=== PATIENT | female | born 1975 | race Caucasian/White ===

== ENCOUNTER 2017-09-29 20:35 | Emergency (ER) | payer OTHER ==
[~2017-09-29 20:35] MED LIST: CYCLOBENZAPRINE10 M2 PO; DIAZEPAM5 MG; DILAUDID2 MG PO; ESTRACE0.1 MG/GM TOP; FENTANYL50 MCG/HR; HYDROMORPHONE HY4 MG PO; IBUPROFEN800 MG; LEVOTHYROXIN0.137 MG PO; ONDANSETRON4 M1 PO; PERCOCET 325 MG1 TA2 PO; PREDNISONE20 M1 PO; PRINIVIL 5MG5 MG PO; PROAIR HFA8.5 GM INH; SENNA PLUS 50 M1 TAB PO; SUMATRIPTAN SUC25 MG PO; VIVELLE-DO0.1 MG/24 TOP
[2017-09-29 21:18] LABS: ABSOLUTE BASOPHIL COUNT 0.1 /CUMM (0.0-0.2); ABSOLUTE EOSINOPHIL COUNT 0.3 /CUMM (0.0-0.7); ABSOLUTE GRANULOCYTE CT 3.7 /CUMM (1.4-6.5); ABSOLUTE LYMPH COUNT 3.5 /CUMM (1.2-3.4); ABSOLUTE MONOCYTE COUNT 0.5 /CUMM (0.10-0.60); BASOPHIL % 1.8 % (0.0-2.0); EOSINOPHIL % 3.8 % (0-5); GRANULOCYTE % 45.1 % (42.2-75.2); HEMATOCRIT 45.4 % (37-47); MEAN CORPUSCULAR HGB 28.8 PG (27.0-31.0); MEAN CORPUSCULAR HGB CONC 35.1 G/DL (33.0-37.0); MEAN PLATELET VOLUME 7.6 FL (7.4-10.4); PLATELET COUNT 338 /CUMM (130-400); RBC DISTRIBUTION WIDTH 13.9 % (11.5-14.5); RED BLOOD CELL CT 5.53 /CUMM (4.20-5.40); WHITE BLOOD CELL COUNT 8.2 /CUMM (4.8-10.8)
--- NOTE | 2017-09-29 21:27 | RADIOLOGY REPORT ---
EXAMINATION: XR CHEST CLINICAL INFORMATION: Chest pain. COMPARISON: Chest x-ray dated 08/31/2015. TECHNIQUE: 2 views of the chest were obtained. FINDINGS: No airspace opacities or pleural effusions are seen. The cardiomediastinal silhouette is normal. No acute osseous abnormality is seen. IMPRESSION: Clear lungs. No acute process.
--- NOTE | 2017-09-29 22:10 | ED CARDIAC/CP/PALPITATIONS ---
History of Present Illness General Chief Complaint: Chest Pain Stated Complaint: CHEST PAIN X THIS AM Source: patient, old records Exam Limitations: no limitations Vital Signs & Intake/Output Vital Signs & Intake/Output Vital Signs Date Time Temp Pulse Resp B/P B/P Pulse O2 O2 Flow FiO2 Mean Ox Delivery Rate 09/29 2215 76 16 130/84 96 Room Air 09/29 2057 89 20 125/87 98 Allergies Coded Allergies: MDX - Latex (Mild, RASH 12/11/13) Reconcile Medications Albuterol Sulfate (Proair Hfa) 8.5 GM HFA.AER.AD 2-4 PUF INH Q4-6 PRN PRN shortness of breath Diazepam 5 MG TABLET ANXIETY (Reported) Estradiol (Vivelle-Dot) 0.1 MG/24 HOUR PATCH.TDSW 1 PAT TOP 2XW UNKNOWN ( Reported) Estradiol (Estrace) 0.1 MG/GM CRE 0.1 MG TOP DAILY HORMONE REPLACEMENT ( Reported) Fentanyl 50 MCG/HR TDM 50 MCG Q72 PAIN (Reported) HYDROMORPHONE HCL (Hydromorphone Hydrochloride) 4 MG TABLET 1 TAB PO 4 TIMES/ DAY PAIN (Reported) HYDROMORPHONE HCL (Dilaudid) 2 MG TABLET 1 TAB PO TID CHEST WALL PAIN Ibuprofen 800 MG TABLET PAIN (Reported) Levothyroxine Sodium 0.137 MG TAB 0.137 MG PO DAILY THYROID (Reported) Lisinopril (Prinivil) 5 MG TABLET 1 TAB PO DAILY BP (Reported) Ondansetron (Ondansetron Odt) 4 MG TAB.RAPDIS 4 MG PO Q8 NAUSEA (Reported) OXYCODONE HCL/ACETAMINOPHEN (Percocet 5-325 MG Tablet) 325 MG/5 MG TAB 1-2 TAB PO Q4-6 PRN PRN PAIN Prednisone 20 MG TABLET 1 TAB PO BID laryngitis SENNOSIDES/DOCUSATE SODIUM (Senna Plus Tablet) 50 MG/8.6 MG TAB 1 TAB PO PRN CONSTIPATION (Reported) Sucralfate (Carafate) 1 GRAM/10 ML ORAL.SUSP 10 ML PO 4 TIMES/DAY PRN ESOPHAGITIS 1 hour before food and bedtime Sumatriptan Succinate 25 MG TABLET 25 MG PO PRN HEADACHE (Reported) Triage Note: PER PT CP SONCE AM TOOK A CLINDAMYCIN AND FELT IT WAS STUCK HAS HAD PAIN SINCE PT HAS A INFECTION IN MOUTH ON CLINDA FOR IT Triage Nurses Notes Reviewed? yes : No Patient currently breastfeeds: No HPI: Patient is on clindamycin for a dental infection. Patient states she took her dose this morning and felt like it got stuck in her lower chest. Patient states approximately 10 minutes later she did feel go down but since then she has been having severe pain whenever she swallows. Patient is able to swallow it is just painful to do so. There is no shortness of breath. Patient is also concerned because she has been unable to take her pain medication or her Valium because of the pain with swallowing. The pain with swallowing is sharp and cramping in nature. It is exacerbated with swallowing. There is no radiation. Pain is 10 out of 10. Past History Travel History Traveled to [place] past 21 day No Medical History Any Pertinent Medical History? see below for history Neurological: NONE EENT: NONE Cardiovascular: hypertension Respiratory: NONE Gastrointestinal: NONE Hepatic: NONE Renal: NONE Musculoskeletal: chronic neck pain Psychiatric: NONE Endocrine: THYROID History of MRSA: No History of VRE: No History of CDIFF: No Surgical History Surgical History: non-contributory Psychosocial History Who do you live with Patient/Self Services at Home None What is your primary language Khmer Tobacco Use: Current Daily Use Daily Tobacco Use Amount/Type: => 5 Cigarettes daily ETOH Use: denies use Illicit Drug Use: denies illicit drug use Family History Hx Contributory? No Review of Systems Review of Systems Constitutional: Reports: no symptoms. EENTM: Reports: no symptoms. Respiratory: Reports: no symptoms. Cardiovascular: Reports: see HPI, chest pain. GI: Reports: no symptoms. Genitourinary: Reports: no symptoms. Musculoskeletal: Reports: no symptoms. Skin: Reports: no symptoms. Neurological/Psychological: Reports: no symptoms. Hematologic/Endocrine: Reports: no symptoms. Immunologic/Allergic: Reports: no symptoms. All Other Systems: Reviewed and Negative Physical Exam Physical Exam General Appearance: well developed/nourished, alert, awake, anxious, moderate distress Head: atraumatic, normal appearance Eyes: Bilateral: PERRL, EOMI. Ears, Nose, Throat: normal pharynx, normal ENT inspection, hearing grossly normal Neck: normal inspection, supple, full range of motion Respiratory: normal breath sounds, chest non-tender, no respiratory distress, lungs clear Cardiovascular: regular rate/rhythm, normal peripheral pulses Gastrointestinal: normal bowel sounds, soft, non-tender, no organomegaly Back: normal inspection, normal range of motion Extremities: normal inspection, normal capillary refill, normal range of motion, no edema Neurologic/Psych: no motor/sensory deficits, awake, alert, oriented x 3, normal gait, normal mood/affect Skin: intact, normal color, warm/dry Lymphatic: no anterior cervical audelia Core Measures ACS in differential dx? No CVA/TIA Diagnosis No Sepsis Present: No Sepsis Focused Exam Completed? No Progress Differential Diagnosis: eSOPHAGEAL FOREIGN BODY, ESOPHAGITIS Plan of Care: Orders Procedure Date/time Status Add-on Test (ER Only) 09/29 2225 Active TSH REFLEX 09/29 2099 Complete HUMAN BETA HCG SCREEN 09/29 2099 Complete TROPONIN LEVEL 09/29 2036 Complete COMPREHENSIVE METABOLIC PANEL 09/29 2036 Complete CBC WITHOUT DIFFERENTIAL 09/29 2036 Complete EKG 09/30 2035 Active Laboratory Tests 09/29/172099: Anion Gap 11, Estimated GFR 54 L, BUN/Creatinine Ratio 11.8, Glucose 97, Calcium 9.0, Total Bilirubin 0.3, AST 81 H, ALT 87 H, Alkaline Phosphatase 205 H, Troponin I < 0.01, Total Protein 7.6, Albumin 4.2, Globulin 3.4, Albumin/ Globulin Ratio 1.2, TSH &T3 &Free T4 Intrp 0.751, Total Beta HCG NEGATIVE, CBC w Diff NO MAN DIFF REQ, RBC 5.53 H, MCV 82.0, MCH 28.8, MCHC 35.1, RDW 13.9, MPV 7.6, Gran % 45.1, Lymphocytes % 42.8, Monocytes % 6.5, Eosinophils % 3.8, Basophils % 1.8, Absolute Granulocytes 3.7, Absolute Lymphocytes 3.5 H, Absolute Monocytes 0.5, Absolute Eosinophils 0.3, Absolute Basophils 0.1 09/29/172053: TSH &T3 &Free T4 Intrp Cancelled Initial ED EKG: NSR, no ST T wave changes Prior EKG: unchanged Comments: Patient feels better after a GI cocktail. Departure Departure Disposition: HOME OR SELF CARE Condition: Stable Clinical Impression Primary Impression: Esophagitis Referrals: Oscar STINSON,Andre Penaloza (PCP/Family) Additional Instructions: TAKE CAROFATE PRESCRIBED RETURN IF SYMPTOMS WORSEN OR FOR ANY CONCERNS Departure Forms: Customer Survey General Discharge Information Prescriptions: Current Visit Scripts Sucralfate (Carafate) 10 ML PO 4 TIMES/DAY PRN ESOPHAGITIS #1200 ML 1 hour before food and bedtime Critical Care Note Critical Care Note Critical Care Time: non-applicable Departure Forms: Customer Survey General Discharge Information Prescriptions: Current Visit Scripts Sucralfate (Carafate) 10 ML PO 4 TIMES/DAY PRN ESOPHAGITIS #1200 ML 1 hour before food and bedtime
[2017-09-29] MEDS ORDERED: CARAFATE1 GM/10 M1 PO (22:58)
[2017-09-29 23:36] VITALS: BP 139/97
== END 2017-09-29 23:43 ==
LOC: ERH 20:35
PROVIDERS: Physician Assistant Medical
DX: K20.9 Esophagitis, unspecified (principal)
CPT/HCPCS: 71046; 93005; 93010; J2405

== ENCOUNTER 2017-12-10 15:13 | Emergency (ER) | payer OTHER ==
[~2017-12-10 15:13] MED LIST changes: +CARAFATE1 GM/10 M1 PO
[2017-12-10 15:22] VITALS: BP 133/99
[2017-12-10] MEDS ORDERED: MEDROL4 M2 PO (15:24)
--- NOTE | 2017-12-10 15:24 | ED SKIN/ALLERGY COMPLAINT ---
History of Present Illness General Chief Complaint: Animal/Insect Bite Stated Complaint: SENT BY DR FOR BEE STINGS. ?POSSIBLE ALLERGY Source: patient Exam Limitations: no limitations Vital Signs & Intake/Output Vital Signs & Intake/Output Vital Signs Date Time Temp Pulse Resp B/P B/P Pulse O2 O2 Flow FiO2 Mean Ox Delivery Rate 12/10 1522 96.7 81 15 133/99 98 Room Air Room Air ED Intake and Output 12/11 0000 12/10 1200 Intake Total 0 Output Total Balance 0 Intake, Oral 0 Allergies Coded Allergies: bee venom protein (honey bee) (Severe, ANAPHYLAXIS A CHILD 12/10/17) MDX - Latex (Mild, RASH 12/11/13) Reconcile Medications Albuterol Sulfate (Proair Hfa) 8.5 GM HFA.AER.AD 2-4 PUF INH Q4-6 PRN PRN shortness of breath Diazepam 5 MG TABLET ANXIETY (Reported) Estradiol (Vivelle-Dot) 0.1 MG/24 HOUR PATCH.TDSW 1 PAT TOP 2XW UNKNOWN ( Reported) Estradiol (Estrace) 0.1 MG/GM CRE 0.1 MG TOP DAILY HORMONE REPLACEMENT ( Reported) Fentanyl 50 MCG/HR TDM 50 MCG Q72 PAIN (Reported) HYDROMORPHONE HCL (Hydromorphone Hydrochloride) 4 MG TABLET 1 TAB PO 4 TIMES/ DAY PAIN (Reported) HYDROMORPHONE HCL (Dilaudid) 2 MG TABLET 1 TAB PO TID CHEST WALL PAIN Ibuprofen 800 MG TABLET PAIN (Reported) Levothyroxine Sodium 0.137 MG TAB 0.137 MG PO DAILY THYROID (Reported) Lisinopril (Prinivil) 5 MG TABLET 1 TAB PO DAILY BP (Reported) Methylprednisolone. (Medrol) 4 MG TAB.DS.PK 1 DP PO AD ALLERGIC REACTION 6 on day 1 then reduce by one tablet daily until gone Ondansetron (Ondansetron Odt) 4 MG TAB.RAPDIS 4 MG PO Q8 NAUSEA (Reported) OXYCODONE HCL/ACETAMINOPHEN (Percocet 5-325 MG Tablet) 325 MG/5 MG TAB 1-2 TAB PO Q4-6 PRN PRN PAIN Prednisone 20 MG TABLET 1 TAB PO BID laryngitis SENNOSIDES/DOCUSATE SODIUM (Senna Plus Tablet) 50 MG/8.6 MG TAB 1 TAB PO PRN CONSTIPATION (Reported) Sucralfate (Carafate) 1 GRAM/10 ML ORAL.SUSP 10 ML PO 4 TIMES/DAY PRN ESOPHAGITIS 1 hour before food and bedtime Sumatriptan Succinate 25 MG TABLET 25 MG PO PRN HEADACHE (Reported) Triage Nurses Notes Reviewed? yes Onset: Abrupt Duration: hour(s):, constant Timing: recent history Severity: moderate, severe Location: extremities : No Patient currently breastfeeds: No HPI: 42-year-old female comes into the emergency room for further evaluation after being stung by bee. Patient reports that she was stung on her right arm at 1:30 in the morning yesterday. She has nothing on her left some days prior. She denies any tongue swelling or shortness of breath. She reports significant pain to her right arm with tingling going down to her fingers into her armpit. She reports that she just wasn't feeling well today and she called her doctor who told her to come in for further evaluation. 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 She carries an EpiPen. SHE TOOK Benadryl at home. (Daron Medley) Past History Travel History Traveled to [place] past 21 day No Medical History Any Pertinent Medical History? see below for history Neurological: NONE EENT: NONE Cardiovascular: hypertension Respiratory: NONE Gastrointestinal: NONE Hepatic: NONE Renal: NONE Musculoskeletal: chronic neck pain Psychiatric: NONE Endocrine: THYROID History of MRSA: No History of VRE: No History of CDIFF: No Surgical History Surgical History: non-contributory Psychosocial History Who do you live with Patient/Self Services at Home None What is your primary language Wallisian Tobacco Use: Current Daily Use Daily Tobacco Use Amount/Type: => 5 Cigarettes daily Family History Hx Contributory? No (Daron Medley) Review of Systems Review of Systems Constitutional: Reports: no symptoms. EENTM: Reports: no symptoms. Respiratory: Reports: no symptoms. Cardiovascular: Reports: no symptoms. GI: Reports: no symptoms. Genitourinary: Reports: no symptoms. Musculoskeletal: Reports: no symptoms. Skin: Reports: see HPI. Neurological/Psychological: Reports: no symptoms. Hematologic/Endocrine: Reports: no symptoms. Immunologic/Allergic: Reports: see HPI. All Other Systems: Reviewed and Negative (Daron Medley) Physical Exam Physical Exam General Appearance: well developed/nourished, mild distress Head: atraumatic Eyes: Bilateral: normal appearance. Ears, Nose, Throat: normal pharynx (no angioedema), normal ENT inspection, hearing grossly normal Neck: normal inspection Respiratory: no respiratory distress Gastrointestinal: soft Back: normal inspection Extremities: normal inspection, normal range of motion, no edema, swelling to right upper arm, some mild erythema over the site where she was bitten, radial pulses 2+, Neurologic/Psych: awake, alert, oriented x 3, normal mood/affect Skin: intact (Daron Medley) Progress Differential Diagnosis: abscess/cellulitis, allergic reaction, anaphylaxis, angioedema, contact dermatitis Plan of Care: 12/10/2017 4:49:56 PM Patient has no evidence of anaphylaxis. Patient clinically looks well. In no apparent distress. Nontoxic-appearing. The bite took place over 12 hours ago. Patient was started on a Medrol Dosepak for swelling to her arm. There is no evidence of infection. She does not appear to be in any type of distress and she understands and agrees with plan of care. (Daron Medley) Departure Departure Disposition: HOME OR SELF CARE Condition: Stable Clinical Impression Primary Impression: Bee sting allergy Referrals: Oscar STINSON,Andre Penaloza (PCP/Family) Additional Instructions: Take Medrol Dosepak as prescribed. Follow-up with primary care doctor. Return if any concerns worsening symptoms. Please go over all results of today's visit with your primary care doctor. Contact your primary care doctor to let them know you were here in the emergency room. There may be nonspecific findings which may not be related to your visit today here in the emergency room but may require further evaluation and chronic monitoring by your primary care doctor. If you had a laceration today the chance of foreign body always remains. You should follow-up with your primary care doctor for recheck in 3-5 days for a wound check. If you had an x-ray done there is a chance that a fracture could have been missed on initial read and you should follow-up with your primary care doctor for repeat x-rays if symptoms persist. If your blood pressure was elevated here in the emergency room please have rechecked by [facility] primary care doctor within the next 48. If you were prescribed a narcotic here in the emergency room or any type of controlled substances you're not allowed to drive while taking this medication or operate any type of heavy machinery. Narcotics can make you feel lightheaded dizziness nausea and can cause constipation. You may need to slate picker a stool softener. Thank you for choosing [facility] emergency room. Please return to the emergency room immediately if you have any other concerns worsening of symptoms. Departure Forms: Customer Survey General Discharge Information Prescriptions: Current Visit Scripts Methylprednisolone. (Medrol) 1 DP PO AD #1 DP 6 on day 1 then reduce by one tablet daily until gone (Daron Medley) PA/MULTIMEDIA MANAGER Co-Sign Statement Statement: ED Attending supervision documentation- [] I saw and evaluated the patient. I have also reviewed all the pertinent lab results and diagnostic results. I agree with the findings and the plan of care as documented in the PA's/MULTIMEDIA MANAGER's documentation. [x] I have reviewed the ED Record and agree with the PA's/MULTIMEDIA MANAGER's documentation. [] Additions or exceptions (if any) to the PAs/MULTIMEDIA MANAGER's note and plan are summarized below: [] (Aura STINSON,Katherine)
== END 2017-12-10 15:50 ==
LOC: ERH 15:13
DX: T63.441A Toxic effect of venom of bees, accidental (unintentional), initial encounter (principal)